=== PATIENT | female | born 1970 | race Two or more races ===

== ENCOUNTER → 2024-02-01 08:03 | Outpatient (REF) | payer BC, SELFPAY | LOC: RST 08:03 | PROVIDERS: ATTENDING PHYSICIAN Internal Medicine Gastroenterology; FAMILY PHYSICIAN Family Medicine | DX: R13.12 Dysphagia, oropharyngeal phase (principal) | CPT/HCPCS: 74230; 92611 ==

== ENCOUNTER → 2024-02-14 06:36 | Outpatient (REF) | payer BC, SELFPAY | LOC: RAD 06:36 | PROVIDERS: ATTENDING PHYSICIAN Internal Medicine Gastroenterology; FAMILY PHYSICIAN Family Medicine | DX: R19.8 Other specified symptoms and signs involving the digestive system and abdomen (principal); R13.12 Dysphagia, oropharyngeal phase | CPT/HCPCS: 74270 ==

== ENCOUNTER → 2024-04-14 18:41 | Outpatient (REF) | payer BC, SELFPAY ==
[2024-04-14 19:06] LABS: Urine Albumin Negative (Neg - Trace); Urine Bilirubin Negative (Negative); Urine Character Clear (Clear); Urine Color Yellow; Urine Glucose Negative (Negative); Urine Ketone Negative (Negative); Urine Leukocyte Negative (Negative); Urine Nitrite Negative (Negative); Urine Occult Blood Negative (Negative); Urine Specific Gravity 1.025 (<1.030); Urine Urobilinogen Negative (Neg - 1+)
== END ==
LOC: OLAB 18:41
PROVIDERS: ATTENDING PHYSICIAN Obstetrics & Gynecology
DX: N39.0 Urinary tract infection, site not specified (principal)
CPT/HCPCS: 81003; 87086

== ENCOUNTER 2024-05-14 07:11 | Outpatient (RCR) | payer BC, SELFPAY | END 2024-05-14 23:59 | disposition home or self-care (01) | LOC: RPT 07:11 | PROVIDERS: ATTENDING PHYSICIAN Internal Medicine Gastroenterology; FAMILY PHYSICIAN Family Medicine | DX: N81.6 Rectocele (principal); M62.89 Other specified disorders of muscle; R10.2 Pelvic and perineal pain; N94.10 Unspecified dyspareunia; Z73.6 Limitation of activities due to disability | CPT/HCPCS: 97163; 97530 ==

== ENCOUNTER 2024-06-16 14:47 | Outpatient (RCR) | payer BC, SELFPAY | END 2024-06-16 23:59 | disposition home or self-care (01) | LOC: RPT 14:47 | PROVIDERS: ATTENDING PHYSICIAN Internal Medicine Gastroenterology; FAMILY PHYSICIAN Family Medicine | DX: N81.6 Rectocele (principal); M62.89 Other specified disorders of muscle; R10.2 Pelvic and perineal pain; N94.10 Unspecified dyspareunia; Z73.6 Limitation of activities due to disability | CPT/HCPCS: 97110; 97140; 97530 ==

== ENCOUNTER → 2024-09-24 13:02 | Outpatient (REF) | payer BC, SELFPAY | LOC: HWRAD 13:02 | PROVIDERS: ATTENDING PHYSICIAN Obstetrics & Gynecology; FAMILY PHYSICIAN Family Medicine | DX: R10.2 Pelvic and perineal pain (principal) | CPT/HCPCS: 76830; 76856 ==

== ENCOUNTER 2025-03-24 21:30 | Emergency (ER) | payer BC, SELFPAY ==
[2025-03-24 21:37] VITALS: BP 147/91
[2025-03-24 22:00] LABS: Hematocrit 35.2 % (37.0-47.0); Hemoglobin 12.0 g/dL (12.0-16.0); Mean Corp Hgb Conc. 34.1 g/dL (33.0-37.0); Mean Corpuscular Volume 81.5 fL (81.0-99.0); Nucleated Red Blood Cells % 0 %; Platelet Count 251 10^3/uL (130-400); Red Cell Dist. Width 13.5 % (11.5-14.5)
[2025-03-24 22:29] LABS: ALT (SGPT) 28 U/L (0-35); AST (SGOT) 29 U/L (14-36); Albumin 4.4 g/dl (3.5-5.0); Alkaline Phosphatase 65 U/L (38-126); Blood Urea Nitrogen 16 mg/dl (7-17); Calcium 9.9 mg/dl (8.4-10.2); Carbon Dioxide 23 mmol/L (22-30); Chloride 109 mmol/L (98-107); Glucose 114 mg/dl (70-99); Potassium 3.7 mmol/L (3.5-5.1); Sodium 137 mmol/L (135-145); Total Protein 7.2 g/dl (6.3-8.2); eGFR > 60.00
[2025-03-24 22:31] LABS: Troponin I < 0.012 ng/ml
[2025-03-25 00:02] VITALS: BP 146/89
[2025-03-25 00:08] LABS: Lipase 51 U/L (23-300)
[2025-03-25 00:26] VITALS: BMI 25.7
[2025-03-25 01:00] VITALS: BP 126/83
--- NOTE | 2025-03-25 01:41 | ED.GENMED ---
History of Present Illness
General
Chief Complaint: Chest Pain
Source: patient
Exam Limitations: none
Time Seen by Provider: 03/25/25 01:36
Nursing documentation reviewed up to this point in time: agreed with
History of Present Illness
History of Present Illness:
54-year-old female presents emergency ferment due to right-sided chest pain and headache. This occurred around 4 PM. She was cleaning a hot house little day, and then began having a right-sided headache and chest pain. It is dissipating. She
feels as though heat caused this.
Past History
Past History
ED Past Medical History: Other (Pelvic mass (question fibroid versus ovarian mass))
ED Past Surgical History: Gynecological and Orthopedic
Social History
Tobacco: Non-smoker
Personal:
Living: with family
Review of Systems
Review of Systems
Allergies reviewed?: Yes
All Other Systems: Not applicable
Constitutional: Reports no symptoms
EENT: Reports no symptoms
Respiratory: Reports no symptoms
Cardiac: Reports chest pain
ABD/GI: Reports no symptoms
: Reports no symptoms
Musculoskeletal: Reports no symptoms
Skin: Reports no symptoms
Neurological: Reports headache
Endocrine: Reports no symptoms
Hematologic/Lymphatic: Reports no symptoms
Psychiatric: Reports no symptoms
Phy Exam
Physical Exam
Physical Exam:
Physical Exam
General: no apparent distress, not acutely ill
Neck: supple. no meningeal signs. normal posterior pharynx
Heart: s1/s2 regular rate and rhythm, no murmur. equal radial
pulses.
HEENT: Pupils equal round reactive to light, EOMI
Lungs: no acute respiratory distress. clear bilaterally
Abdomen: normal bowel sounds. not tender. no CVAT
Neuro: alert and oriented. no focal neurological deficits cranial nerves II through XII intact
Skin: no rash
Psychiatric: well kept. interactive and cooperative
Extremities: no edema. no calf tenderness. negative homans. good distal pulses
Scores
Heart Score for Chest Pain Patients
STEMI patient?: No
History: Slightly or Non-Suspicious
ECG: Normal
Age: >45 - <65 years
Risk Factors: 1 or 2 Risk Factors
Troponin: </= Normal Limit
Heart Score for Chest Pain Patients: 2
Heart Score Risk: 2.5% MACE over next 6 weeks
Course
Orders/Labs/Results
Orders:
Orders
03/24/25 21:44
ECG [Electrocardiogram (*1)] Urgent
Reason for Study: Fatigue / Weakness
Cardiology Consult: Unknown
EKG- Treatment ONCE
Computerized Posturography Urgent
03/24/25 21:51
Complete Blood Count/With Diff Urgent
Comprehensive Metabolic Panel Urgent
Lipase Urgent
Comment: ADD ON
Troponin I Urgent
03/24/25 23:24
Add On- LAB Urgent
Tests Added?: lipase
Abnormal Lab Results
03/24/25
21:51
Hct 35.2 L %
(37.0-47.0)
Absolute Monos (auto) 0.8 H 10^3/uL
(0.1-0.6)
Chloride 109 H mmol/L
(98-107)
Glucose 114 H mg/dl
(70-99)
03/24/25 21:51
03/24/25 21:51
Vital Signs
Initial and Last Documented VS:
Initial Vital Signs
Temp Pulse BP Pulse Ox
98.2 F 63 147/91 98
03/24/25 21:37 03/24/25 21:37 03/24/25 21:37 03/24/25 21:37
Last Documented Vital Signs
Temp Pulse Resp BP Pulse Ox
98.2 F 56 15 146/89 100
03/24/25 21:37 03/25/25 00:15 03/25/25 00:15 03/25/25 00:02 03/25/25 01:42
MDM/Problems Addressed
Differential Diagnosis Includes:
Migraine, cluster headache, ACS, PE
MDM/Problems Addressed:
54-year-old female with right-sided headache, likely migraine. Headache improved. Chest pain of unclear etiology. Is possible that her symptoms are all related to heat exposure today.
*Pulse Oximetry
SaO2: 100
Oxygen Mode of Delivery: Room air
Patient hypoxic: no
*EKG
Interpreted by ED Provider?: Yes
EKG Intrepretation Date: 03/24/25
EKG Intrepretation Time: 21:55
Interpretation: abnormal
Heart Rate: 71
Rate: normal
Rhythm: sinus
[place]: normal axis
Interval: normal interval
QRS Pattern: normal QRS
Ischemia: no ischemia
*[employer]st Interpretation
Rate: normal
Interpretation: normal
Heart Rate: 60
Rhythm: sinus
*Critical Care Note
Total Time (30-74mins, 75-104mins- exclusive of procedures): Not Applicable
Data Reviewed
Further Testing Considered But Not Given:
CT head and CT chest not indicated
Patient Management
Social determinants of health affecting care: Living situation and Strong social support
Escalation/DeEscalation of care consider admission/obs:
Admit not indicated
ED Attending Note
-
Portions of this chart may have been created with voice recognition software.� Occasional wrong word or��sound alike� substitutions may have occurred due to the inherent limitations of voice recognition software.
Discharge Plan
Departure
Patient Disposition: Home (Routine Discharge)
Date of Disposition: 03/25/25
Time of Disposition: 01:55
Patient with high blood pressure during this ER visit?: Yes
Condition: Good
Discharge Problem:
Headache, Chest pain
Instructions: Headache in adults - ED discharge instructions, Chest Pain PCP Follow Up, BLOOD PRESSURE
Prescriptions:
No Action
ibuprofen 600 mg tablet
600 mg PO Q6H PRN (Reason: mild to moderate pain) Qty: 1 0RF
acetaminophen [Tylenol] 325 mg Tablet
650 mg PO Q6HPRN PRN (Reason: mild pain) Qty: 0 0RF
oxycodone 5 mg Tablet
2.5 mg PO Q4HPRN PRN (Reason: moderate pain) Qty: 0 0RF
oxycodone 5 mg Tablet
5 mg PO Q4HPRN PRN (Reason: severe pain when tolerating PO) Qty: 15 0RF
Referrals:
UNKNOWN - PT DOES,NOT KNOW [Family Provider]
Activity Restrictions/Additional Instructions:
Follow up with primary care in 3-5 days, return for any concerns.
Interventions
Interventions:
*Risk Screen - Suicide Last Done: 03/25/25 00:26
*General Assessment Last Done: 03/24/25 21:39
*Neglect/Abuse Screening Last Done: 03/24/25 21:39
*ED- Fall Risk Assessment Last Done: 03/24/25 21:39
*ED COVID-19 Vaccine History Last Done: 03/24/25 21:39
SL-Hriiub-Nxdyxpsjjh Assessment Last Done: 03/25/25 00:26
ED- Cardiac Assessment Last Done: 03/25/25 00:26
ED- Neurological Assessment Last Done: 03/25/25 00:26
ED- Pulmonary Assessment Last Done: 03/25/25 00:26
Discharge Date and Time
Print Language: LEBANESE
[2025-03-25 02:00] VITALS: BP 118/62
== END 2025-03-25 02:24 | disposition home or self-care (01) ==
LOC: EMR 21:30
PROVIDERS: EMERGENCY PHYSICIAN Emergency Medicine
DX: R07.89 Other chest pain (principal); R51.9 Headache, unspecified
CPT/HCPCS: 99284; 80053; 83690; 84484; 85025; 93005